=== PATIENT | female | born 1985 | race Caucasian/White ===

== ENCOUNTER 2023-07-04 09:34 | Outpatient (CLI) | payer MEDICARE | END 2023-07-04 09:35 | disposition home or self-care (01) | LOC: CSHLAB 09:34 | PROVIDERS: ATTEND Obstetrics & Gynecology | DX: Z01.812 Encounter for preprocedural laboratory examination (principal); D25.0 Submucous leiomyoma of uterus; Z53.9 Procedure and treatment not carried out, unspecified reason | CPT/HCPCS: 84703; 85027; 86850; 86900; 86901 ==

== ENCOUNTER 2023-07-06 09:16 | Day surgery (SDC) | payer MEDICARE ==
[2023-07-04 10:17] VITALS: BMI 34.9
[2023-07-04 12:41] LABS: Hematocrit 42.5 % (34.9-44.5); Hemoglobin 14.2 g/dL (12.0-15.5); Mean Corpuscular HGB CONC 33.4 g/dL (32.0-36.0); Mean Corpuscular Volume 89.9 fl (81.6-98.3); Mean Platelet Volume 10.8 fl (7.4-10.4); Platelet Count 302 10x3/uL (150-450); RBC Distribution Width 11.9 % (11.5-14.5); Red Blood Cell (RBC) Count 4.73 10x6/uL (3.90-5.03); White Blood Cell (WBC) Count 8.6 10x3/uL (3.5-10.5)
[2023-07-04 13:09] LABS: BHCG - Serum Negative (NEGATIVE); Pregs Control Background? CLEAR/WHITE (CLR/WHITE); Pregs Control Bar Appear? YES (CONTROL BAR)
[2023-07-06] MEDS ORDERED: Gabapentin 300 MG CAP ONE (10:12)
[2023-07-06] MEDS ORDERED: Famotidine/PF 20 mg/2ml Vial ONE (10:12)
[2023-07-06] MEDS ORDERED: CeleCOXIB 100 MG CAP ONE (10:13)
[2023-07-06] MEDS ORDERED: metroNIDAZOLE 500 MG/100 ML BAG ONE (11:51)
[2023-07-06] MEDS ORDERED: Bupivacaine PF 0.5% 30 ML VIAL ONE (12:00)
[2023-07-06] MEDS ORDERED: EPINEPHrine 1 MG/ML VIAL ONE (12:00)
[2023-07-06] MEDS ORDERED: Rocuronium Bromide 10 MG/ML (10ML VIAL) ONE (12:03)
[2023-07-06] MEDS ORDERED: Midazolam HCl 2 mg/2 ml Vial ONE ×2 (12:03→12:08)
[2023-07-06] MEDS ORDERED: Dexamethasone 20 MG/5 ML VIAL ONE (12:03)
[2023-07-06] MEDS ORDERED: Lidocaine 1% PF 5 ML VIAL ONE (12:03)
[2023-07-06] MEDS ORDERED: Fentanyl 250 MCG/5 ML VIAL ONE (12:03)
[2023-07-06] MEDS ORDERED: PROPOFOL 20 ML ONE (12:03)
[2023-07-06] MEDS ORDERED: Ondansetron PF 4 MG/2 ML Vial ONE (12:03)
[2023-07-06] MEDS ORDERED: CEFAZOLIN 2 GM VIAL ONE (12:21)
[2023-07-06] MEDS ORDERED: fentaNYL 50 mcg/mL 1 mL Vial ONE ×2 (14:00→14:12)
[2023-07-06] MEDS ORDERED: Meperidine HCl/PF 25 MG/ML VIAL ONE (14:40)
[2023-07-06] MEDS ORDERED: HYDROcodone/Acetaminophen 5/325 mg Tablet ONE (16:05)
== END 2023-07-06 16:35 | disposition home or self-care (01) ==
LOC: CSHSDC 09:16
PROVIDERS: ATTEND Obstetrics & Gynecology
PROC: 0UT94ZZ Resection of Uterus, Percutaneous Endoscopic Approach (ICD-10-PCS; principal; 2023-07-06)
PROC: 0UT74ZZ Resection of Bilateral Fallopian Tubes, Percutaneous Endoscopic Approach (ICD-10-PCS; 2023-07-06)
DX: D25.0 Submucous leiomyoma of uterus (principal); N73.6 Female pelvic peritoneal adhesions (postinfective); F41.9 Anxiety disorder, unspecified; M79.7 Fibromyalgia; F30.2 Manic episode, severe with psychotic symptoms; Z79.890 Hormone replacement therapy; Z79.899 Other long term (current) drug therapy; F17.210 Nicotine dependence, cigarettes, uncomplicated; Z98.890 Other specified postprocedural states
CPT/HCPCS: 58571; 84703; 85027; 86850; 86900; 86901; C9250; J0171; J3010; 36415; 88307; J1100; J2175; J2250; J2405; J2704; S0020; S0028